=== PATIENT | male | born 1950 | race Caucasian/White ===

== ENCOUNTER 2016-12-28 07:45 | Day surgery (SDC) | payer OTHER, MEDICARE ==
[~2016-12-28 07:45] MED LIST: BUPIVACAINE 0.5% 30 ML SDV ONE; ceFAZolin 2 GM/DEXTROSE 100 ML IV ONE
[2016-12-28] MEDS ORDERED: LIDOCAINE 1% 5 ML SDV ONE (08:06)
[2016-12-28] MEDS ORDERED: LR 1,000 ML IV ONE (08:41)
[2016-12-28] MEDS ORDERED: CEFAZOLIN 2 GM/DEXTROSE/100 ML BAG IV ONE (08:46)
[2016-12-28] MEDS ORDERED: MIDAZOLAM 2 MG/2 ML VIAL ONE (09:16)
[2016-12-28] MEDS ORDERED: PROPOFOL 200 MG/20 ML VIAL ONE (09:29)
[2016-12-28] MEDS ORDERED: fentaNYL 250 MCG/5 ML INJ ONE (09:29)
[2016-12-28] MEDS ORDERED: DEXAMETHASONE 4 MG/ML VIAL ONE ×2 (09:30)
[2016-12-28] MEDS ORDERED: LIDOCAINE 2% 5 ML SDV ONE (09:30)
[2016-12-28] MEDS ORDERED: ROCURONIUM 100 MG/10 ML VIAL ONE (09:30)
[2016-12-28] MEDS ORDERED: ONDANSETRON 4 MG/2 ML VIAL ONE (09:30)
[2016-12-28] MEDS ORDERED: PHENYLEPHRINE HCL 100 MCG/ML SYR ONE (09:49)
[2016-12-28] MEDS ORDERED: DEXMEDETOMIDINE HCL 200 MCG/2 ML VIAL IV ONE (10:00)
[2016-12-28] MEDS ORDERED: GLYCOPYRROLATE 0.2 MG/1 ML VIAL ONE (10:03)
[2016-12-28] MEDS ORDERED: SUGAMMADEX SODIUM 200 MG/2 ML VIAL IVP ONE (11:12)
[2016-12-28 12:20] VITALS: PULSE 59; TEMP 97.9
[2016-12-28 12:31] VITALS: O2SAT 91
[2016-12-28 12:46] VITALS: BP 106/64; RESP 12
--- NOTE | 2017-01-05 11:28 | GOP ---
Amended report DATE OF OPERATION: 12/28/2016 SURGEON: Miller Ruvalcaba MD REGULATORY INTERN: JAMES Dupree. PREOPERATIVE DIAGNOSIS: 1. Incisional ventral hernia. 2. Bilateral inguinal hernias. POSTOPERATIVE DIAGNOSIS: 1. Incisional ventral hernia. 2. Bilateral inguinal hernias. PROCEDURE PERFORMED: 1. Laparoscopic bilateral inguinal hernia repairs. 2. Open ventral hernia repair with mesh. FINDINGS: Patient was found to have a 6 cm ventral hernia defect, which was easily closed. He had bilateral direct inguinal hernia defects. ESTIMATED BLOOD LOSS: Less than 25 cc. DESCRIPTION OF PROCEDURE: Patient was taken to the operating room where he received satisfactory general endotracheal anesthesia. He was placed in supine position, prepped and draped in usual sterile fashion. A vertical incision was made through the old scar, and dissection was carried down. The hernia defect was identified. The sac was dissected free from surrounding subcutaneous tissue back to the fascia level. Sac was opened, its contents reduced, and the sac was reduced. A subperitoneal space was created. Peritoneum was closed with 3-0 Vicryl suture. A dual-sided Covidien mesh was placed in the subcostal space. It was secured around the periphery of the wound with interrupted 0 Ethibond mattress sutures. The fascial defect was then closed directly with interrupted 0 Ethibond [id number] sutures. Wound was infiltrated with 0.5% Marcaine. Eventually, a 15 round silicone MICAELA drain was brought out through a separate stab incision and then secured to the skin with a silk suture. Prior to that, however, a short incision was made infraumbilically and dissection carried down to the rectus sheath that was incised. A subfascial tunnel was developed in the preperitoneal space. It was dissected free with a balloon dissector, which was replaced with a CO2 insufflation trocar. Two other trocars were placed a midline under direct vision. Prakash's ligament was exposed bilaterally. The cords were mobilized bilaterally. Peritoneum was dissected off the cord structures. There were no significant indirect sacs. Bilateral direct defects were reduced. Bilateral Covidien mesh patches were placed over the inguinal floor and anchored in place with AbsorbaTack, securing it to the lacunar ligament, to the anterior abdominal wall, and the lateral abdominal wall outside the internal ring as well as Prakash's ligament. Both sides were handled in a similar manner. Hemostasis was assured. Trocars were removed under direct vision and Pneumopreperitoneum was released. Trocar sites were closed with 0 Vicryl for the fascia and 4-0 Monocryl subcuticular stitch for the skin. The ventral hernia wound was then closed using 2-0 Vicryl for the subcutaneous tissue and a running 4-0 Monocryl subcuticular stitch for the skin. All layers were infiltrated with 0.5% Marcaine. He tolerated procedure well, was taken to recovery room in good condition. COMPLICATIONS: There were no complications. /[id number]/MODL Add acc#, 01/05/17, shun GARCIA
== END 2016-12-28 18:29 | disposition home or self-care (01) ==
LOC: FSGY 07:45 → F3N 07:45 → UNDOADMIN 07:45 → EDSTATUS 09:00 → FSGY 18:29
PROVIDERS: ATTEND Surgery
PROC: 0YUA4JZ Supplement Bilateral Inguinal Region with Synthetic Substitute, Percutaneous Endoscopic Approach (ICD-10-PCS; principal; 2016-12-28 09:00)
PROC: 0WUF0JZ Supplement Abdominal Wall with Synthetic Substitute, Open Approach (ICD-10-PCS; principal; 2016-12-28 09:00)
DX: K43.2 Incisional hernia without obstruction or gangrene (principal); K40.20 Bilateral inguinal hernia, without obstruction or gangrene, not specified as recurrent; K22.70 Barrett's esophagus without dysplasia; G47.33 Obstructive sleep apnea (adult) (pediatric)
CPT/HCPCS: 49560; 49568; 49650; C1727; C1781; J0690; J1100; J2250; J2370; J2405; J2704; J3010

== ENCOUNTER 2019-03-30 09:14 | Emergency (ER) | payer OTHER, MEDICARE ==
--- NOTE | 2019-03-30 09:47 | EDPHY ---
H & P Time Seen by Provider: 03/30/19 09:23 HPI/ROS: HPI Right calf pain. 68-year-old male by private vehicle. This patient reports atraumatic right calf pain which she states he notices more when he is walking. He states that he has difficulty pushing up from his toes and plantar flexing. He denies any history of fall or trauma. No recent prolonged sedentary activity or travel. No history of DVT or PE. ROS: Constitutional: No fever, no chills. No weakness. Respiratory: No cough. No shortness of breath. Musculoskeletal: No back pain. No neck pain. As above.. Skin: No rashes. No lacerations or abrasions. Neurological: No focal weakness or altered sensation. Past medical history: Primary care physician is Dr. Donaldson. Past medical history includes diverticulitis and sleep apnea. Social history: Nonsmoker. Here by himself. No alcohol. Physical Exam: General Appearance: Alert, no distress. This patient is responding to questions appropriately and in full sentences. This patient appears well- hydrated and well-nourished. Eyes: Pupils equal and round no pallor or injection. No lid edema, erythema or injection. Right lower extremity exam: The right lower extremity is neurovascularly intact. Normal capillary refill in all his digits. He is neurologically intact in all dermatomes and myotomes of the right leg and foot. Plantar and dorsiflexion strength is symmetrical with the left side. No palpable cords involving his calf or popliteal fossa. Negative Evelyn sign. Back exam: No midline thoracic, lumbar, sacral tenderness on palpation. No paraspinal tenderness on palpation to these areas. Neurological: Motor sensory function is grossly intact. Cranial nerves are normal. Gait is normal. Skin: Warm and dry, no rashes. Musculoskeletal: Neck is supple and nontender. Extremities are symmetrical. All joints range without pain or impingement. Psychiatric: No agitation. No depression. Database: EKG: Imaging: Right lower extremity ultrasound: DVT of the right calf peroneal vein. Results discussed with staff radiologist Dr. Pradeep Olivera. Procedures: Emergency department course: Triage vital signs reviewed. He is mildly hypertensive. Vital signs are otherwise normal. He presents to the emergency department requesting an ultrasound as directed by the nurse at his primary care physician's office. 10:30 a.m., patient re-evaluated, results of ultrasound discussed. Need for anticoagulation and follow-up discussed. He will be started on Xarelto. He will be given a starter prescription for this medication. I discussed follow- up with his primary care physician Dr. Donaldson regarding ongoing management. He will make an appointment for early next week. Return to emergency department precautions were reviewed with him. He feels comfortable going home. All of his questions were answered. He was discharged from the emergency department in good condition. Differential Diagnosis: The differential diagnosis on this patient includes but is not limited to DVT, calf muscle strain. Radiculopathy, epidural compression syndrome unlikely. This represents a partial list of diagnoses considered. These considerations are based on history, physical exam, past history, reassessment and diagnostic testing. Smoking Status: Former smoker Constitutional: Initial Vital Signs Temperature (C) 36.4 C 03/30/19 09:26 Heart Rate 94 03/30/19 09:26 Respiratory Rate 16 03/30/19 09:26 Blood Pressure 142/94 H 03/30/19 09:26 O2 Sat (%) 94 03/30/19 09:26 O2 Delivery Mode Room Air Allergies/Adverse Reactions: No Known Allergies Allergy (Verified 03/30/19 09:26) Home Medications: Medication Instructions Recorded MAGNESIUM 1 tab DAILY 12/25/16 Multivitamin (*) 1 tab DAILY 12/25/16 Omeprazole 1 tab DAILY 12/25/16 Vitamin B Complex 1 tab DAILY 12/25/16 Vitamin C 1 tab DAILY 12/25/16 Vitamin D3 (*) 1 tab DAILY 12/25/16 Rivaroxaban [Xarelto 15mg (*)] 15 mg PO BID 21 Days tab 03/30/19 Medical Decision Making - Diagnostics Imaging Results: Imaging Impressions Extremity Venous Study 03/30/19 09:33 Impression: DVT in peroneal veins in the calf. Findings discussed with Loc Porras MD 03/30/2019 at 10:28. - Data Points Medications Given: Discontinued Medications Rivaroxaban (Xarelto) 15 mg PO EDNOW ONE Stop: 03/30/19 10:37 Last Admin: 03/30/19 10:43 Dose: 15 mg Departure - Departure Disposition: Home, Routine, Self-Care Clinical Impression: Right calf pain, Right leg DVT Condition: Good Instructions: Rivaroxaban (By mouth), Deep Vein Thrombosis (ED), Deep Vein Thrombosis Prevention (ED) Additional Instructions: Read and follow provided instructions. Follow-up with your primary care physician early next week for re-evaluation and ongoing management of your right calf DVT. Your primary care physician will manage the length of your treatment. I have prescribed you the initial starter prescription for Xarelto/rivaroxaban which is 15 mg twice daily for the 1st 21 days. You will then take 20 mg once daily for the remainder of treatment. This will be managed by your primary care physician. Take medication as prescribed. Return to the emergency department for worsening pain, swelling, discoloration, shortness of breath or other serious concerns. Referrals: Zoë Meraz MD [Primary Care Provider] - As per Instructions Prescriptions: Rivaroxaban [Xarelto 15mg (*)] 15 mg PO BID 21 Days tab
[2019-03-30] MEDS ORDERED: RIVAROXABAN 15 MG TAB PO ONE (10:36)
[2019-03-30 10:58] VITALS: BP 150/102
== END 2019-03-30 10:55 | disposition home or self-care (01) ==
LOC: CED 09:14
DX: I82.491 Acute embolism and thrombosis of other specified deep vein of right lower extremity (principal)
CPT/HCPCS: 93971-PO; 99284-ER